=== PATIENT | male | born 1945 | race Caucasian/White ===

== ENCOUNTER 2017-12-26 07:07 | Outpatient (CLI) | payer MEDICARE, OTHER ==
[2017-12-26 08:36] LABS: eGFR (African) > 60; eGFR (Non-African) > 60
== END 2017-12-26 07:10 ==
LOC: LAB 07:07
PROVIDERS: ATTEND Internal Medicine Endocrinology, Diabetes & Metabolism
DX: E11.9 Type 2 diabetes mellitus without complications (principal)
CPT/HCPCS: 36415; 80053; 80061; 83036